=== PATIENT | male | born 1955 | race Two or more races ===

== ENCOUNTER 2024-06-14 00:09 | Emergency (ER) | payer MEDICARE, SELFPAY ==
[2024-06-14] VITALS (7 sets, daily range): BP systolic 89–126; BP diastolic 53–80; PULSE 64–114; RESP 18–20; TEMP 36.6–36.8; O2SAT 95–98; BMI 31.8
--- NOTE | 2024-06-14 01:47 | EKG_ITS ---
[facility] Test Date: 2024-06-14 Pat Name: NAYELY FELIX Department: Room: - Gender: Male [employer]: : 1955 Requested By: Tucker Hodge Order Number: [id number] Reading MD: Tucker Hodge Measurements Intervals [place] Rate: 67 P: 28 MO: 148 QRS: -16 QRSD: 90 T: -2 QT: 373 QTc: 394 Interpretive Statements SINUS RHYTHM No previous ECG available for comparison /store/S0/[id number]/ecg/[id number].pdf
--- NOTE | 2024-06-14 01:47 | PD.EDRME ---
Rapid Medical Screening Exam RME Arrival date/time: 06/14/24 00:09 69-year-old male with a history of CABG, history of non-STEMI [place] and 3 stent placement reports with complaints of heart palpitations for several days Chief Complaint: Abdominal Pain Time Seen by Provider: 06/14/24 00:36 Vital signs: Vital Signs Temperature 98.3 F 06/14/24 01:30 Pulse Rate 83 06/14/24 01:30 Respiratory Rate 20 06/14/24 01:30 Blood Pressure 126/53 L 06/14/24 01:30 Oxygen Delivery Method Room Air 06/14/24 01:30
[2024-06-14 02:08] LABS: Basophils # (Auto) 0.1 Thou/mm3 (0.0-0.2); Basophils % (Auto) 0 % (0-2.5); Eosinophils % (Auto) 0 % (0-10); Hematocrit 39.2 % (41.0-53.0); Hemoglobin 13.7 g/dL (13.5-16.0); Immature Granulocytes % (Auto) 0 % (0-0); Immature Granulocytes Auto 0.05 Thou/mm3 (0.00-0.00); Lymphocytes % (Auto) 14 % (10-50); Mean Corpuscular HGB Conc 34.9 g/dl (31.0-37.0); Mean Corpuscular Hemoglobin 30.9 pg (25.0-35.0); Mean Corpuscular Volume 89 fL (80-100); Monocytes # (Auto) 1.3 Thou/mm3 (0.0-0.8); Monocytes % (Auto) 9 % (0-12); Neutrophils # (Auto) 11.4 Thou/mm3 (1.8-7.7); Neutrophils % (Auto) 77 % (37-80); Nucleated Red Blood Cell % 0 /100 WBC (0); Platelet Count 283 Thou/mm3 (140-440); RDW Standard Deviation 43.6 fL (35.1-43.9); Red Blood Count 4.43 Miln/mm3 (4.50-5.90); White Blood Count 14.8 Thou/mm3 (3.8-10.6)
--- NOTE | 2024-06-14 02:24 | XR_ITS ---
Examination: AP chest single view Technique one AP portable upright chest single view Exam date and time: June 14, 2024 0232 hrs. Indications: Chest pain today. Findings: Mild prominence left ventricle CABG 13 mm calcified granuloma right midlung No lobar pneumonia or pulmonary edema Impression: No active disease
--- NOTE | 2024-06-14 02:24 | XR_ITS ---
Examination: CTA chest, with intravenous contrast. CTA abdomen, with intravenous contrast. CTA pelvis, with intravenous contrast. 2-D sagittal and coronal reconstructions. 3-D reconstructions. Date and time of exam: June 14, 2024 0354 hrs. Indications: Chest pain shortness of breath abdominal pain today CTDI vol (mgy) 9.64 DLP (MGycm) 769 Technique: Multiple CTA images, 2.0 mm slice thickness, obtained chest, abdomen, pelvis, with the high-resolution 64 slice scanner. 100 cc Isovue-370 is administered intravenously. Sagittal and coronal 2-D reconstructions are obtained. 3-D reconstructions, angiographic images are obtained. 3-D postprocessing, including vascular maximum intensity projections. Low dose protocols were performed. One or more of the following dose reduction techniques were used; automated exposure control, adjustment of the mA and/or KV according to patient size, use of iterative reconstruction technique. Findings: No thoracic aortic aneurysm dilatation or dissection No pulmonary artery emboli Calcified granuloma in the right lower lobe, multiple bilateral subcentimeter noncalcified pulmonary nodules No pneumonia or pulmonary edema or pleural disease No liver splenic or renal lesion No hydronephrosis No gallstones No pancreatic or adrenal mass Abdominal aorta normal size No bowel obstruction Normal appendix Scattered colonic diverticulosis, no diverticulitis Intact urinary bladder Transverse prostate dimension 4.6 cm Moderate disc narrowing L5-S1 Impression: No thoracic aortic aneurysm dilatation Negative for pulmonary artery emboli No pneumonia, pulmonary edema or pleural disease Subcentimeter bilateral noncalcified pulmonary nodules, with this study as baseline recommend 6 month follow-up CT chest without contrast No acute process in the abdomen or pelvis
[2024-06-14 02:41] LABS: B-Type Natriuretic Peptide 107 pg/mL (0-100)
[2024-06-14 02:42] LABS: Alanine Aminotransferase 19 U/L (10-49); Albumin, Serum 4.3 gm/dL (3.4-4.8); Albumin/Globulin Ratio 1.6 (1.2-2.2); Alkaline Phosphatase 57 U/L (46-116); Anion Gap 10 (7-16); Aspartate Amino Transferase 19 U/L (0-34); BUN/Creatinine Ratio 19 Ratio (12-20); Bilirubin,Total 0.7 mg/dL (0.3-1.2); Blood Urea Nitrogen 17 mg/dL (9-23); Calcium 9.5 mg/dL (8.3-10.6); Calcium (Corrected) 9.5 mg/dL (8.5-10.1); Carbon Dioxide 23.2 mMol/L (20.0-31.0); Chloride 108 mMol/L (98-107); Creatinine (Component) 0.9 mg/dL (0.6-1.3); Estimated Creatinine Clearance 86.2 mL/min (>60); Globulin 2.7 gm/dL (2.3-3.5); Glucose 157 mg/dL (74-106); Osmolality,Calculated 285 (275-295); Potassium 4.1 mMol/L (3.4-5.1); Sodium 141 mMol/L (136-145); Troponin I < 0.020 ng/mL (0.0-0.045); eGFR > 60 See Note
[2024-06-14] MEDS: LORazepam 2 MG/ML VIAL 0.75 MG IVP (02:49)
[2024-06-14 03:04] LABS: D-Dimer 739 ng/mL (<600)
[2024-06-14 03:46] LABS: Magnesium 1.6 mg/dL (1.6-2.6); Thyroid Stimulating Hormone 1.02 uIU/mL (0.55-4.78)
[2024-06-14 03:47] LABS: Collection Type, Urine Clean Catch; WBC,Urine 0 /hpf (0-5)
--- NOTE | 2024-06-14 03:54 | PC.NURSE ---
To ct-scan via w/c.
[2024-06-14 04:10] LABS: Bilirubin,Urine Negative (Negative); Blood,Urine 1+ (Negative); Clarity,Urine Clear (Clear/Hazy); Color,Urine Lt-Yellow (Lt Yel-Yel); Culture Indicated,Urine Not Indicated; Glucose, Urine 4+ (Negative); Ketones,Urine Negative (Negative); Leukocyte Esterase,Urine Negative (Negative); Nitrite,Urine Negative (Negative); Protein,Urine Trace (Neg - Trace); RBC,Urine 3 /hpf (0-3); Squamous Epithelial Cell,Urine < 1 /hpf (0-5); Urobilinogen,Urine Negative mg/dL (0.0-1.0)
[2024-06-14 04:16] LABS: Amphetamine/Methamp Scrn,U Negative (Negative); Barbiturate Screen,Urine Negative (Negative); Benzodiazepines Screen,Urine Negative (Negative); Benzoylecgonine Screen, Ur Negative (Negative); Fentanyl Screen,Urine Negative (Negative); Opiate Screen,Urine Negative (Negative); THC Screen,Urine Negative (Negative)
--- NOTE | 2024-06-14 04:49 | PD.EDABDPN ---
ED Abdominal Pain RME/HPI General Chief Complaint: Abdominal Pain Stated complaint: ABD PAIN, CHEST PAIN Time seen by provider: 06/14/24 00:36 Arrival date/time: 06/14/24 00:09 RME / HPI RME / HPI narrative: 06/14/24 00:09 69-year-old male with a history of CABG, history of non-STEMI [place] and 3 stent placement reports with complaints of heart palpitations for several days This section includes all my notes and documentations, including HPI, PE, and ED course. Iglesia Bone MD HPI: 69-year-old male here to be evaluated with about 24-hour history of palpitations and chest pain abdominal pain. Has history of CAD, with CABG about 6 years ago and stents about 3 years ago. He has trouble describing his symptoms and localizing his pain. No cough or congestion. No shortness of breath. [place] clammy briefly earlier. No fever or chills. No other complaints. ROS: All negative except as documented in HPI. Physical Exam: General: Alert and oriented. No acute distress when remaining still. Eyes: Conjunctivae and lids clear. ENT: No nasal congestion. Neck: Supple. Heart: Irregularly irregular (100 bpm). Lungs: No respiratory distress. Good air movement. No rhonchi, wheezing, rales. Abdomen: Soft and nontender. Normal bowel sounds. No distension. No rebound or guarding. Back: No CVA tenderness. Skin: Warm and dry. Neuro: Alert and oriented X 3. I reviewed all diagnostic test results. My interpretation of the EKG is atrial fibrillation (102 bpm) with nonspecific ST?T changes. My interpretation of the chest x-ray is no acute findings, official radiology report is pending. My review of the chest/abdomen/pelvis CT is pending. Blood tests and urine tests remarkable for WBC 14.8, D-dimer 739. Treatment here included IV fluid and Ativan. Significant improvement At 6 AM on 06/14/2024, the care of the patient was transferred to Dr. Lopez with chest/abdomen/pelvis CT pending. Iglesia Bone MD Related Data Allergies Allergy/AdvReac Type Severity Reaction Status Date / Time No Known Allergies Allergy Mild Uncoded 03/31/08 17:01 Course Quality Measures none Orders Category Date Time Status Bedside COVID-19 Antigen Test NOW Care 06/14/24 02:23 Active Bedside Influenza A&B Antigen Test NOW Care 06/14/24 02:23 Completed EKG (ED ONLY) *Do not use* NOW Care 06/14/24 01:47 Completed Saline [Insert IV] NOW Care 06/14/24 02:23 Active Straight [In and Out Catheter] X1 Care 06/14/24 02:[address] angio chest abdomen pelvis Stat Exams 06/14/24 02:24 Taken EKG (ED Only) Stat Exams 06/14/24 01:47 Ordered XR chest 1V portable Stat Exams 06/14/24 02:24 Taken BNP [B-Type Natriuretic Peptide] Stat Lab 06/14/24 01:57 Completed CBC Stat Lab 06/14/24 01:57 Completed CMP [Comprehensive Metabolic Panel] Stat Lab 06/14/24 01:57 Completed D-Dimer Stat Lab 06/14/24 01:57 Completed Drug Screen,Urine Stat Lab 06/14/24 03:04 Completed Magnesium Stat Lab 06/14/24 01:57 Completed TSH [Thyroid Stimulating Hormone] Stat Lab 06/14/24 01:57 Completed Troponin I Stat Lab 06/14/24 01:57 Completed UA, C/S IF [Urinalysis, C/S if Indicated] Stat Lab 06/14/24 03:04 Completed LORazepam [Ativan Inj] Med 06/14/24 02:24 Discontinued 0.75 mg IVP X1 ONE Sodium Chloride 0.9% 1000 ml [Ns] 1,000 ml Med 06/14/24 04:50 Active IV 999 mls/hr Vital Signs Vital signs: Vital Signs Temperature 98.3 F 06/14/24 01:30 Pulse Rate 83 06/14/24 01:30 Respiratory Rate 20 06/14/24 01:30 Blood Pressure 126/53 L 06/14/24 01:30 Oxygen Delivery Method Room Air 06/14/24 01:30 Abdominal Pain MDM Patient data External records reviewed:: [facility] previous records and None Clinical information provided by:: patient Social determinants that could affect healthcare access:: none Patient has the following chronic illnesses:: CAD How is presenting disease/condition affected by chronic disease/condition?: exacerbated by Evaluation data The following diagnostics were reviewed and interpreted by me:: lab results, radiology exam(s) and EKG tracing(s) (My interpretation of the EKG is: Sinus rhythm (67 bpm) with nonspecific ST-T changes. Iglesia Bone MD) Lab and/or radiology exams considered but not ordered:: None Interpretation Summary: Complete diagnostics pending Medications / Prescriptions Medications or Prescriptions considered but not ordered:: None Medication administrations:: Medication Administration History Sodium Chloride (Ns) 1,000 mls @ 999 mls/hr IV .Q1H1M ONE Stop: 06/14/24 05:50 Last Admin: 06/14/24 04:55 Dose: 999 mls/hr Documented By: LB Discontinued Medications Lorazepam (Lorazepam 2 Mg/Ml Vial) 0.75 mg IVP X1 ONE Stop: 06/14/24 02:25 Last Admin: 06/14/24 02:49 Dose: 0.75 mg Documented By: GB IV fluid and Ativan Consultations Consultation(s) initiated? (list below): No Diagnosis Differential diagnosis abdominal pain: acute appendicitis, calculus of kidney, constipation, diverticulitis, pancreatitis, small bowel obstruction and other (PE, DE, dissection) Most likely diagnosis given after review of the tests above:: Complete diagnostics pending Admission Indicated Admission indicated?: not indicated Explain why admission is indicated or not indicated:: Complete analysis pending Admission Request Was there a request for admission?: No Disposition Plan Disposition Plan: other (specify) (Care of the patient was transferred to Dr. Lopez) Discharge Plan Prescriptions/Referrals Referrals: Kervin Flores MD [Primary Care Provider] - In 1 week Problem List Clinical Impression: Palpitations, Abdominal pain, Chest pain Patient/Caregiver Discharge Instructions Print Language: Armenian
[2024-06-14] MEDS: SODIUM CHLORIDE 0.9% 1000 ML 1,000 ML 999 ML IV (04:55)
== END 2024-06-14 06:34 | disposition home or self-care (01) ==
PROVIDERS: Physician Assistant; Emergency Provider Emergency Medicine; PCP Family Medicine
DX: R00.2 Palpitations (principal); R07.9 Chest pain, unspecified; R10.9 Unspecified abdominal pain; Z95.1 Presence of aortocoronary bypass graft; I25.2 Old myocardial infarction; I25.10 Atherosclerotic heart disease of native coronary artery without angina pectoris
CPT/HCPCS: 36415; 71045; 71275; 74174; 80053; 80307; 81001; 83735; 83880; 84443; 84484; 85025; 85379; 87400; 87811; 93005; 99285; A4649; J2060; J7030; Q9967